=== PATIENT | male | born 1970 | race American Indian/Alaskan Native ===

== ENCOUNTER 2016-08-05 09:45 | Outpatient (CLI) | payer OTHER, MEDICARE ==
[2016-08-05 11:00] LABS: Blood Urea Nitrogen 8 mg/dL (9-20)
--- NOTE | 2016-08-06 15:34 | Cat Scan Report ---
MRI of the neck with and without contrast. History: Unilateral vocal cord paralysis. Findings: The parotid and submandibular glands are normal. Several small nodes are seen in the submandibular and submental regions. No evidence of cervical adenopathy is seen. There is abnormal soft tissue density in the left aryepiglottic fold with thickening of the superior aspect of the true cord on the left. The thyroid cartilage is intact. The pre-epiglottic space is normal. There no subglottic abnormalities. Impression: Abnormal soft tissue densities in the left true cord and aryepiglottic fold. A neoplastic process cannot be excluded.
== END 2016-08-05 09:46 | disposition home or self-care (01) ==
LOC: CT 09:45
PROVIDERS: ATTEND Otolaryngology
DX: J38.01 Paralysis of vocal cords and larynx, unilateral (principal); R06.89 Other abnormalities of breathing
CPT/HCPCS: 36415; 70492; 82565; 84520; Q9967